=== PATIENT | male | born 1975 | race Caucasian/White ===

== ENCOUNTER 2017-04-01 19:09 | Emergency (ER) | payer SELFPAY ==
[2017-04-01] MEDS ORDERED: methylPREDNISolone Sodium Succinate 125 MG/2 ML SDV IM ONE (19:23)
[2017-04-01] MEDS ORDERED: Albuterol/Ipratropium 3.0-0.5 MG/3 ML Neb Soln NEB ONE (19:23)
--- NOTE | 2017-04-01 19:27 | EDM.PDOC ---
ED HPI GENERAL MEDICAL PROBLEM - General Chief Complaint: ENT Problem Stated Complaint: SICK/SINUS INFECTION/BLEEDING/CHEST PAIN Time Seen by Provider: 04/01/17 19:24 Source of Information: Reports: Patient - History of Present Illness INITIAL COMMENTS - FREE TEXT/NARRATIVE: HISTORY AND PHYSICAL: History of present illness: []Patient presents with sinus pain and tenderness as well as copious nasal discharge pain is 6 out of 10 on the left greater than right, he has also had persistent cough over the last 2 weeks he is a smoker, he states that he has had some intermittent dizziness and bleeding from his nares No fever nausea vomiting chills sweats no chest pain shortness of breath headache dizziness or palpitation Patient has smoked cigars 5-6 cigars daily for 20 years and 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 Past medical history: As per history of present illness and as reviewed below otherwise noncontributory. Surgical history: As per history of present illness and as reviewed below otherwise noncontributory. Social history: No reported history of drug or alcohol abuse. Family history: As per history of present illness and as reviewed below otherwise noncontributory. Physical exam: HEENT: Atraumatic, normocephalic, pupils reactive, negative for conjunctival pallor or scleral icterus, mucous membranes moist, throat clear, neck supple, nontender, trachea midline. Tympanic membrane on the left red bulging obscured no mastoid tenderness, right is red and inflamed no bulge loss of landmarks no mastoid tenderness Lungs: Clear to auscultation, breath sounds equal bilaterally, chest nontender. Post DuoNeb, he did have some wheeze pre-DuoNeb chest 2 views Heart: S1S2, regular, negative for clicks, rubs, or JVD. Abdomen: Soft, nondistended, nontender. Negative for masses or hepatosplenomegaly. Negative for costovertebral tenderness. Pelvis: Stable nontender. Genitourinary: Deferred. Rectal: Deferred. Extremities: Atraumatic, negative for cords or calf pain. Neurovascular unremarkable. Neuro: Awake, alert, oriented. Cranial nerves II through XII unremarkable. Cerebellum unremarkable. Motor and sensory unremarkable throughout. Exam nonfocal. Diagnostics: []Chest 2 views CBC, INR Therapeutics: []DuoNeb Solu-Medrol 125 mg IM Z-Emiliano Medrol Dosepak HFA OTC symptomatic therapies discussed Impression: []Acute sinusitis Acute bronchitis Left otitis media Definitive disposition and diagnosis as appropriate pending reevaluation and review of above. Face Pain Score (Numeric/FACES): 3 - Related Data Allergies Allergy/AdvReac Type Severity Reaction Status Date / Time Penicillins Allergy Hives Verified 04/01/17 19:19 Home Meds: Home Meds . [No Known Home Meds] 04/01/17 [History] ED ROS GENERAL - Review of Systems Review Of Systems: ROS reveals no pertinent complaints other than HPI. ED EXAM, GENERAL - Physical Exam Exam: See Below Course - Vital Signs Last Recorded V/S: Last Vital Signs Temp 36.7 C 04/01/17 19:13 Pulse 97 04/01/17 19:13 Resp 16 04/01/17 19:13 BP 139/83 04/01/17 19:13 Pulse Ox 96 04/01/17 19:13 - Orders/Labs/Meds Orders: Active Orders 24 hr Category Date Time Status RT Aerosol Therapy [RC] ASDIRECTED Care 04/01/17 19:24 Active Chest 1V Frontal [CR] Stat Exams 04/01/17 19:24 Ordered Labs: Laboratory Tests 04/01/17 04/01/17 Range/Units 19:44 19:44 WBC 11.66 H (4.0-11.0) K/uL RBC 4.45 L (4.50-5.90) M/uL Hgb 15.0 (13.0-17.0) g/dL Hct 42.1 (38.0-50.0) % MCV 94.6 (80.0-98.0) fL MCH 33.7 H (27.0-32.0) pg MCHC 35.6 (31.0-37.0) g/dL RDW Std Deviation 43.0 (28.0-62.0) fl RDW Coeff of Remedios 12 (11.0-15.0) % Plt Count 214 (150-400) K/uL MPV 9.30 (7.40-12.00) fL Neut % (Auto) 68.0 (48.0-80.0) % Lymph % (Auto) 24.6 (16.0-40.0) % [place] % (Auto) 5.9 (0.0-15.0) % Eos % (Auto) 1.4 (0.0-7.0) % Baso % (Auto) 0.1 (0.0-1.5) % Neut # (Auto) 7.9 H (1.4-5.7) K/uL Lymph # (Auto) 2.9 H (0.6-2.4) K/uL [place] # (Auto) 0.7 (0.0-0.8) K/uL Eos # (Auto) 0.2 (0.0-0.7) K/uL Baso # (Auto) 0.0 (0.0-0.1) K/uL Nucleated RBC % 0.0 /100WBC Nucleated RBCs # 0 K/uL INR 0.98 (0.86-1.11) Meds: Medications Discontinued Medications Generic Name Dose Route Start Last Admin Trade Name Freq PRN Reason Stop Dose Admin Albuterol/Ipratropium 3 ml 04/01/17 19:23 04/01/17 19:31 Duoneb 3.0-0.5 Mg/3 Ml NEB 04/01/17 19:24 3 ml ONETIME ONE Administration Azithromycin 500 mg 04/01/17 19:58 Zithromax PO 04/01/17 19:59 NOW STA Methylprednisolone Sodium Succinate 125 mg 04/01/17 19:23 04/01/17 19:31 Solu-Medrol IM 04/01/17 19:24 125 mg ONETIME ONE Administration Departure - Departure Time of Disposition: 20:10 Disposition: Home, Self-Care 01 Condition: Good Clinical Impression: Otitis media, Sinusitis, Bronchitis - Discharge Information Forms: ED Department Discharge Additional Instructions: Medication as prescribed Return if symptoms persist or worsen Follow-up with primary care in 2 weeks sooner as needed From sinus standpoint [id number] symptomatic therapy may benefit Continue Claritin 10 mg by mouth daily Mucinex or DayQuil may benefit Zayra pot daily as discussed If symptoms persist or worsen an ENT visit may be beneficial [facility]NT [address] [place] [id number] The following information is given to patients seen in the emergency department who are being discharged to home. This information is to outline your options for follow-up care. We provide all patients seen in our emergency department with a follow-up referral. The need for follow-up, as well as the timing and circumstances, are variable depending upon the specifics of your emergency department visit. If you don't have a primary care physician on staff, we will provide you with a referral. We always advise you to contact your personal physician following an emergency department visit to inform them of the circumstance of the visit and for follow-up with them and/or the need for any referrals to a consulting specialist. The emergency department will also refer you to a specialist when appropriate. This referral assures that you have the opportunity for follow-up care with a specialist. All of these measure are taken in an effort to provide you with optimal care, which includes your follow-up. Under all circumstances we always encourage you to contact your private physician who remains a resource for coordinating your care. When calling for follow-up care, please make the office aware that this follow-up is from your recent emergency room visit. If for any reason you are refused follow-up, please contact the [facility] emergency department at and asked to speak to the emergency department charge nurse. - My Orders Last 24 Hours: My Active Orders 04/01/17 19:24 RT Aerosol Therapy [RC] ASDIRECTED Chest 1V Frontal [CR] Stat - Assessment/Plan Last 24 Hours: My Active Orders 04/01/17 19:24 RT Aerosol Therapy [RC] ASDIRECTED Chest 1V Frontal [CR] Stat
[2017-04-01] MEDS ORDERED: Azithromycin 250 MG Tab PO STA (19:58)
[2017-04-01 20:19] VITALS: BP 151/77
--- NOTE | 2017-04-02 13:26 | CR ---
EXAM DATE: 04/01/17 PATIENT'S AGE: 41 Patient: HORACE GONZALEZ Facility: [place], [place] Site . Site : [id number] Study: XRay Chest [id number]/[id number] 8:17:36 PM Ordering Physician: Srini Del Valle Final Report: Indication: Pain and shortness of breath Technique: Chest 1 view Comparison: None Findings/Impression: Cardiovascular and mediastinum: Heart size and vasculature are normal in caliber and appearance. Mediastinum is within normal limits. Lungs and pleural space: Lungs are clear. No sign of infiltrate or mass. No sign of pleural effusion. No pneumothorax. Bones and soft tissues: No significant findings. Dictated by Maira Sanon MD @ Apr 01 2017 8:29PM (Electronic Signature) Report Signed by Proxy. FLACO
== END 2017-04-01 20:40 | disposition home or self-care (01) ==
LOC: MW.ED 19:09
DX: J01.90 Acute sinusitis, unspecified (principal); J20.9 Acute bronchitis, unspecified; H66.92 Otitis media, unspecified, left ear; I10 Essential (primary) hypertension; F17.210 Nicotine dependence, cigarettes, uncomplicated; Z88.0 Allergy status to penicillin
CPT/HCPCS: 36415; 71010; 85025; 85610; 99284; A9270; J2930; 96372; 99283